=== PATIENT | male | born 1970 | race Hispanic/Latino ===

== ENCOUNTER 2023-10-17 08:07 | Inpatient (IN) | payer OTHER ==
[~2023-10-17] VITALS: Ht 170.2 cm; Wt 102.1 kg
[2023-10-17 08:35] LABS: BASOPHILS # (AUTO) 0.1 (0.0-0.1); BASOPHILS % 0.6 % (0.0-1.0); EOSINOPHILS # (AUTO) 0.2 (0.0-0.4); EOSINOPHILS % 1.5 % (0.0-6.0); HEMATOCRIT 49.5 % (38.2-49.6); LYMPHOCYTES # (AUTO) 2.7 (1.0-3.2); LYMPHOCYTES % 25.2 % (18.0-39.1); MEAN CORPUSCULAR HEMOGLOBIN 29.1 pg (28-32); MEAN CORPUSCULAR HGB CONC 34.3 g/dL (31-35); MEAN CORPUSCULAR VOLUME 84.6 fL (81-99); MONOCYTES # (AUTO) 0.8 (0.2-0.8); MONOCYTES % 7.5 % (4.4-11.3); NEUTROPHILS % 64.9 % (38.7-80.0); PLATELET COUNT 210 x10e3/uL (140-360); RED BLOOD COUNT 5.85 x10e6/uL (4.3-5.7); WHITE BLOOD COUNT 10.78 x10e3/uL (4.8-10.8)
[2023-10-17] MEDS: Morphine 2mg Syringe 2 MG/ML SYR IV STA (08:43)
[2023-10-17] MEDS: ONDANSETRON HCL INJ 2MG/ML 2ML 2 MG/ML VIAL IV STA (08:44)
[2023-10-17 08:45] LABS: COVID 19 ANTIGEN NOT DETECTED (NEGATIVE)
[2023-10-17] MEDS: SODIUM CHLORIDE 0.9% 1000ML 1,000 ML IV STA (08:46)
[2023-10-17] MEDS: ASPIRIN 325 MG TAB EC PO STA (08:48)
[2023-10-17 08:50] LABS: INR 0.92; PARTIAL THROMBOPLASTIN TIME 27.5 seconds (23.8-35.5); PROTHROMBIN TIME 12.8 seconds (11.9-14.5)
[2023-10-17 09:01] LABS: ALANINE AMINOTRANSFERASE 32 IU/L (0-55); ALBUMIN 4.2 g/dL (3.5-5.0); ALBUMIN/GLOBULIN RATIO 1.2 (0.8-2.0); ALKALINE PHOSPHATASE 90 IU/L (40-150); ANION GAP 12.2 mmol/L (8-16); BILIRUBIN,TOTAL 1.9 mg/dL (0.2-1.2); BLOOD UREA NITROGEN 11 mg/dL (7-26); BUN/CREATININE RATIO 12 (6-25); CALCIUM 9.4 mg/dL (8.4-10.2); CARBON DIOXIDE 25 mmol/L (22-29); CHLORIDE 104 mmol/L (98-107); CREATINE KINASE 81 IU/L (30-200); CREATININE, SERUM 0.93 mg/dL (0.72-1.25); EST GLOMERULAR FILTRATION RATE 97 ML/MIN (>=60); GLUCOSE 103 mg/dL (74-118); LIPASE 10 U/L (8-78); MAGNESIUM 1.9 MG/DL (1.3-2.1); POTASSIUM 4.2 mmol/L (3.5-5.1); SODIUM 137 mmol/L (136-145); TOTAL PROTEIN 7.6 g/dL (6.5-8.1)
[2023-10-17 09:17] LABS: TROPONIN I < 0.001 ng/mL (0-0.300)
[2023-10-17] MEDS ORDERED: IOPAMIDOL 370 MG/ML 100 ML INFUS..BTL INJ ONE (09:23)
[2023-10-17] MEDS: SODIUM CHLORIDE 0.9% 1000ML 1,000 ML IV SCH (11:51)
[2023-10-17] MEDS ORDERED: LIDOCAINE HCL 2% LOCAL INJ 5 ML SDV VIAL INJ ONE (12:22)
[2023-10-17] MEDS ORDERED: DEXAMETHASONE SOD PHOS INJ 4 MG/ML SDV ONE (12:22)
[2023-10-17] MEDS ORDERED: ROCURONIUM BROMIDE 10 MG/ML 5ML VIAL IV ONE (12:22)
[2023-10-17] MEDS ORDERED: SUCCINYLCHOLINE CHLORIDE 20 MG/ML 10ML VIAL ONE (12:22)
[2023-10-17] MEDS ORDERED: SEVOFLURANE INHAL SOLN 250 ML PEN BTL ONE (12:22)
[2023-10-17] MEDS ORDERED: ONDANSETRON HCL INJ 2MG/ML 2ML 2 MG/ML VIAL ONE (12:22)
[2023-10-17] MEDS ORDERED: METOCLOPRAMIDE HCL 10 MG/2ML VIAL ONE (12:22)
[2023-10-17] MEDS ORDERED: PROPOFOL IV EMULSION 10 MG/ML 20 ML VIAL ONE (12:22)
[2023-10-17] MEDS ORDERED: KETOROLAC TROMETHAMINE 30 MG/ML VIAL ONE (12:22)
[2023-10-17 12:28] VITALS: PULSE 79; RESP 18; TEMP 98.9
[2023-10-17] MEDS ORDERED: HYDRALAZINE HCL 20 MG/ML VIAL IV PRN (13:15)
[2023-10-17 13:20] VITALS: BP 139/103; PULSE 78; RESP 17; TEMP 98; O2SAT 78
[2023-10-17] MEDS: Morphine 4mg INJECTION 4 MG/ML INJ IV PRN (14:58)
[2023-10-17 15:00] VITALS: BP 139/103; PULSE 78; RESP 17; TEMP 98; O2SAT 100
[2023-10-17] MEDS: FAMOTIDINE 20 MG TAB PO SCH (17:01)
[2023-10-17 20:00] VITALS: BP 152/86; PULSE 77; RESP 20; TEMP 98.3; O2SAT 99
[2023-10-17 21:36] LABS: CREATINE KINASE 68 IU/L (30-200)
[2023-10-17 22:17] LABS: TROPONIN I < 0.001 ng/mL (0-0.300)
[2023-10-18] VITALS (12 sets, daily range): BP systolic 112–156; BP diastolic 73–100; PULSE 65–88; RESP 16–20; TEMP 97.9–99.3; O2SAT 88–99
[2023-10-18] MEDS: ONDANSETRON HCL INJ 2MG/ML 2ML 2 MG/ML VIAL IV PRN ×2 (02:05→21:06)
[2023-10-18] MEDS ORDERED: BUPIVACAINE HCL 0.5% INJ 30 ML VIAL INJ ONE (06:28)
[2023-10-18 07:48] LABS: BASOPHILS # (AUTO) 0.1 (0.0-0.1); BASOPHILS % 0.6 % (0.0-1.0); EOSINOPHILS # (AUTO) 0.2 (0.0-0.4); EOSINOPHILS % 1.8 % (0.0-6.0); HEMATOCRIT 45.5 % (38.2-49.6); HEMOGLOBIN 15.3 g/dL (14.0-18.0); LYMPHOCYTES # (AUTO) 2.1 (1.0-3.2); LYMPHOCYTES % 23.8 % (18.0-39.1); MEAN CORPUSCULAR HEMOGLOBIN 29.4 pg (28-32); MEAN CORPUSCULAR HGB CONC 33.6 g/dL (31-35); MEAN CORPUSCULAR VOLUME 87.3 fL (81-99); MONOCYTES # (AUTO) 0.8 (0.2-0.8); MONOCYTES % 8.4 % (4.4-11.3); NEUTROPHILS # (AUTO) 5.8 (2.1-6.9); NEUTROPHILS % 65.1 % (38.7-80.0); PLATELET COUNT 190 x10e3/uL (140-360); RED BLOOD COUNT 5.21 x10e6/uL (4.3-5.7); RED CELL DISTRIBUTION WIDTH 13.1 % (11.7-14.4); WHITE BLOOD COUNT 8.96 x10e3/uL (4.8-10.8)
[2023-10-18] MEDS ORDERED: SUGAMMADEX SODIUM 200 MG/2 ML VIAL IV ONE ×2 (07:48→08:54)
[2023-10-18 08:09] LABS: CREATINE KINASE 69 IU/L (30-200)
[2023-10-18 08:20] LABS: TROPONIN I < 0.001 ng/mL (0-0.300)
[2023-10-18 08:38] LABS: ALBUMIN 3.6 g/dL (3.5-5.0); ALBUMIN/GLOBULIN RATIO 1.2 (0.8-2.0); ANION GAP 14.8 mmol/L (8-16); BILIRUBIN,TOTAL 2.2 mg/dL (0.2-1.2); CALCIUM 8.6 mg/dL (8.4-10.2); CREATININE, SERUM 0.91 mg/dL (0.72-1.25); POTASSIUM 3.8 mmol/L (3.5-5.1); TOTAL PROTEIN 6.7 g/dL (6.5-8.1)
[2023-10-18] MEDS: SODIUM CHLORIDE 0.9% 1000ML 1,000 ML IV SCH (11:35)
[2023-10-18] MEDS: HYDROCODONE/APAP 5MG-325MG TAB PO PRN (11:37)
[2023-10-18] MEDS ORDERED: Morphine 10mg syringe 10 MG/ML INJ ONE (11:44)
[2023-10-18] MEDS ORDERED: FENTANYL CITRATE/PF 100MCG/2 ML INJ ONE (11:44)
[2023-10-19] VITALS (9 sets, daily range): BP systolic 114–126; BP diastolic 64–81; PULSE 60–81; RESP 15–20; TEMP 97.6–99.8; O2SAT 92–98
[2023-10-19 05:38] LABS: BASOPHILS % 0.4 % (0.0-1.0); EOSINOPHILS % 0.2 % (0.0-6.0); HEMATOCRIT 41.4 % (38.2-49.6); HEMOGLOBIN 13.6 g/dL (14.0-18.0); LYMPHOCYTES # (AUTO) 2.1 (1.0-3.2); LYMPHOCYTES % 20.5 % (18.0-39.1); MEAN CORPUSCULAR HEMOGLOBIN 28.9 pg (28-32); MEAN CORPUSCULAR HGB CONC 32.9 g/dL (31-35); MEAN CORPUSCULAR VOLUME 87.9 fL (81-99); MONOCYTES # (AUTO) 0.7 (0.2-0.8); MONOCYTES % 7.1 % (4.4-11.3); NEUTROPHILS # (AUTO) 7.4 (2.1-6.9); NEUTROPHILS % 71.4 % (38.7-80.0); PLATELET COUNT 179 x10e3/uL (140-360); RED BLOOD COUNT 4.71 x10e6/uL (4.3-5.7); WHITE BLOOD COUNT 10.32 x10e3/uL (4.8-10.8)
[2023-10-19 06:08] LABS: ANION GAP 11.6 mmol/L (8-16); CALCIUM 8.4 mg/dL (8.4-10.2); CREATININE, SERUM 0.88 mg/dL (0.72-1.25); POTASSIUM 3.6 mmol/L (3.5-5.1)
[2023-10-19] MEDS ORDERED: SIMETHICONE 80 MG CHEW PO PRN (13:15)
[2023-10-20] VITALS: BP 131/84; PULSE 73; RESP 17; TEMP 98.1; O2SAT 93
[2023-10-20 04:00] VITALS: BP 131/82; PULSE 70; RESP 17; TEMP 98.7; O2SAT 98
[2023-10-20 07:39] VITALS: PULSE 79; RESP 18; O2SAT 96
[2023-10-20 08:00] VITALS: BP 142/85; PULSE 80; RESP 18; TEMP 98.4; O2SAT 95
[2023-10-20 09:00] VITALS: BP 131/82; PULSE 79; RESP 18; TEMP 98.7; O2SAT 96
[2023-10-20] MEDS: ACETAMINOPHEN 325 MG TAB PO PRN (09:01)
[2023-10-20] MEDS ORDERED: SIMETHICONE80 MG PO (11:56)
[2023-10-20 12:00] VITALS: BP 135/90; PULSE 68; RESP 18; TEMP 98.2; O2SAT 96
[2023-10-20] MEDS ORDERED: HYDROCODON-ACE1 EA11 PO (12:19)
== END 2023-10-20 13:16 | disposition home or self-care (01) | DRG 418 ==
LOC: ER 08:20 → ERHOLD 11:10 → MED/SURG3 12:35
PROVIDERS: ADMIT Internal Medicine; ATTEND Internal Medicine
PROC: 0FT44ZZ Resection of Gallbladder, Percutaneous Endoscopic Approach (ICD-10-PCS; principal; 2023-10-18 07:03)
DX: K80.00 Calculus of gallbladder with acute cholecystitis without obstruction (principal); C64.1 Malignant neoplasm of right kidney, except renal pelvis; R03.0 Elevated blood-pressure reading, without diagnosis of hypertension; E78.00 Pure hypercholesterolemia, unspecified; K21.9 Gastro-esophageal reflux disease without esophagitis; M19.90 Unspecified osteoarthritis, unspecified site; Z11.52 Encounter for screening for COVID-19
CPT/HCPCS: 0223U; 36415; 71045; 74177; 76705; 80048; 80053; 82550; 83690; 83735; 83880; 84484; 85025; 85379; 85610; 85730; 88304; 93005; 94799; 99252; 99284; J0330; J1100; J1885; J2001; J2270; J2405; J2470; J2543; J2765; J7030; Q9967